=== PATIENT | male | born 1950 | race Caucasian/White ===

== ENCOUNTER → 2023-06-07 10:49 | Outpatient (REF) | payer MEDICARE, SELFPAY | LOC: HWRAD 10:49 | PROVIDERS: ATTENDING PHYSICIAN Family Medicine | DX: R10.32 Left lower quadrant pain (principal) | CPT/HCPCS: 74177; Q9967 ==

== ENCOUNTER → 2023-08-07 06:32 | Day surgery (SDC) | payer MEDICARE, SELFPAY ==
[2023-08-07 07:31] LABS: Glucose - Point of Care 121 mg/dl (70-99)
== END ==
LOC: GI 06:32
PROVIDERS: ATTENDING PHYSICIAN Internal Medicine; FAMILY PHYSICIAN Family Medicine
DX: D12.3 Benign neoplasm of transverse colon (principal); K63.5 Polyp of colon; K57.30 Diverticulosis of large intestine without perforation or abscess without bleeding; K64.8 Other hemorrhoids; K31.89 Other diseases of stomach and duodenum; R93.3 Abnormal findings on diagnostic imaging of other parts of digestive tract; D64.9 Anemia, unspecified; R10.32 Left lower quadrant pain; R10.84 Generalized abdominal pain
CPT/HCPCS: 45385; 45380; 43239; 88305; 82962; 88342

== ENCOUNTER → 2023-10-05 06:57 | Outpatient (REF) | payer MEDICARE, SELFPAY | LOC: PAVMRI 06:57 | PROVIDERS: ATTENDING PHYSICIAN Orthopaedic Surgery; FAMILY PHYSICIAN Family Medicine | DX: M25.512 Pain in left shoulder (principal) | CPT/HCPCS: 73221 ==

== ENCOUNTER → 2023-10-18 07:46 | Outpatient (REF) | payer MEDICARE, SELFPAY | LOC: MRI 3T 07:46 | PROVIDERS: ATTENDING PHYSICIAN Nurse Practitioner; FAMILY PHYSICIAN Family Medicine; REFERRING PHYSICIAN Internal Medicine Hematology & Oncology | DX: R93.89 Abnormal findings on diagnostic imaging of other specified body structures (principal); R10.32 Left lower quadrant pain | CPT/HCPCS: 72197; 74183; A9575 ==

== ENCOUNTER → 2023-10-31 06:45 | Outpatient (REF) | payer MEDICARE, SELFPAY | LOC: RCS 06:45 | PROVIDERS: ATTENDING PHYSICIAN Specialist; FAMILY PHYSICIAN Family Medicine | DX: Z01.818 Encounter for other preprocedural examination (principal) | CPT/HCPCS: 93005 ==

== ENCOUNTER 2023-12-27 06:33 | Outpatient (RCR) | payer MEDICARE, SELFPAY | END 2023-12-27 23:59 | disposition home or self-care (01) | LOC: RPT 06:33 | PROVIDERS: ATTENDING PHYSICIAN Physician Assistant Surgical; FAMILY PHYSICIAN Family Medicine | DX: M62.81 Muscle weakness (generalized) (principal); M25.512 Pain in left shoulder; Z98.890 Other specified postprocedural states; Z73.6 Limitation of activities due to disability | CPT/HCPCS: 97010; 97110; 97162 ==

== ENCOUNTER 2024-01-26 08:53 | Outpatient (RCR) | payer MEDICARE, SELFPAY | END 2024-01-26 23:59 | disposition home or self-care (01) | LOC: RPT 08:53 | PROVIDERS: ATTENDING PHYSICIAN Physician Assistant Surgical; FAMILY PHYSICIAN Family Medicine | DX: M25.512 Pain in left shoulder (principal); M62.81 Muscle weakness (generalized); Z98.890 Other specified postprocedural states; Z73.6 Limitation of activities due to disability | CPT/HCPCS: 97010; 97110 ==

== ENCOUNTER 2024-02-09 07:24 | Outpatient (RCR) | payer MEDICARE, SELFPAY | END 2024-02-09 23:59 | disposition home or self-care (01) | LOC: RPT 07:24 | PROVIDERS: ATTENDING PHYSICIAN Physician Assistant Surgical; FAMILY PHYSICIAN Family Medicine | DX: M25.512 Pain in left shoulder (principal); M62.81 Muscle weakness (generalized); Z98.890 Other specified postprocedural states; Z73.6 Limitation of activities due to disability | CPT/HCPCS: 97010; 97110 ==

== ENCOUNTER 2024-03-01 06:54 | Outpatient (RCR) | payer MEDICARE, SELFPAY | END 2024-03-01 23:59 | disposition home or self-care (01) | LOC: RPT 06:54 | PROVIDERS: ATTENDING PHYSICIAN Physician Assistant Surgical; FAMILY PHYSICIAN Family Medicine | DX: M25.512 Pain in left shoulder (principal); M62.81 Muscle weakness (generalized); Z98.890 Other specified postprocedural states; Z73.6 Limitation of activities due to disability | CPT/HCPCS: 97010; 97110 ==

== ENCOUNTER → 2024-12-16 07:35 | Outpatient (REF) | payer MEDICARE, SELFPAY ==
[2024-12-16 08:38] LABS: Hematocrit 31.5 % (39.0-52.0); Hemoglobin 9.7 g/dL (13.0-18.0); Mean Corp Hgb Conc. 30.8 g/dL (33.0-37.0); Mean Corpuscular Volume 118.4 fL (80.0-94.0); Nucleated Red Blood Cells % 0 % (-); Platelet Count 452 10^3/uL (130-400); Red Cell Dist. Width 13.7 % (11.5-14.5)
[2024-12-16 09:10] LABS: Blood Urea Nitrogen 19 mg/dl (9-20); Iron 136 ug/dl (49-181)
[2024-12-16 09:18] LABS: Total Iron Binding Capacity 444 ug/dl (261-462)
[2024-12-16 09:37] LABS: Ferritin 89.1 ng/ml (17.9-464.0)
== END ==
LOC: REG 07:35
PROVIDERS: ATTENDING PHYSICIAN Internal Medicine Hematology & Oncology
DX: D64.9 Anemia, unspecified (principal); D75.89 Other specified diseases of blood and blood-forming organs; D47.2 Monoclonal gammopathy; D46.9 Myelodysplastic syndrome, unspecified; C88.00 Waldenstrom macroglobulinemia not having achieved remission
CPT/HCPCS: 36415; 82565; 82668; 82728; 83540; 83550; 84520; 85025

== ENCOUNTER 2024-12-19 06:19 | Day surgery (SDC) | payer MEDICARE, SELFPAY ==
[2024-12-19] VITALS (11 sets, daily range): BP systolic 16–148; BP diastolic 68–79; BMI 35.5
[2024-12-19] MEDS: PERIDEX 0.12% ORAL RINSE 15 ML PO (06:49)
[2024-12-19] MEDS: BACTROBAN NASAL 1 GRAM NASAL (06:49)
[2024-12-19 06:59] LABS: Glucose - Point of Care 97 mg/dl (70-99)
[2024-12-19 07:10] LABS: INR 1.09; PT 14.4 Sec (11.4-14.6)
[2024-12-19 07:11] LABS: APTT 24.8 Sec (23.4-35.0); Blood Urea Nitrogen 26 mg/dl (9-20); Calcium 9.4 mg/dl (8.4-10.2); Carbon Dioxide 29 mmol/L (22-30); Chloride 105 mmol/L (98-107); Estimated Creatinine Clearance 76 ml/min; Glucose 126 mg/dl (70-99); Potassium 4.2 mmol/L (3.5-5.1); Sodium 138 mmol/L (135-145); eGFR > 60.00
--- NOTE | 2024-12-19 07:16 | W.SUR.PREOP ---
Pre-Operative Surgical Note
-
I have examined this patient prior to the performance of the scheduled procedure.
The patient's condition is unchanged from the time of the current History and
Physical and the patient is able to undergo the scheduled procedure.
Discussed with patient symptomatology and indications for temporal artery biopsy. Discussed with him that I defer to the referring primary care/consumer education specialist for the suspicion/differential or indication for performing temporal artery biopsy. I
discussed my role in technically performing the biopsy. Discussed procedure at length. Discussed risks including but not limited to bleeding, infection, nerve injury. Discussed potential negative yield. Discussed his symptoms of essentially
bilateral jaw pain/fatigue tiredness. Therefore discussed while the most recent recommendations are for unilateral biopsies in the setting of one-sided symptoms, given that he has bilateral symptoms, likely would proceed with bilateral temporal
artery biopsy. He understands all wishes to proceed.
[2024-12-19 07:19] LABS: Hematocrit 29.9 % (39.0-52.0); Hemoglobin 9.9 g/dL (13.0-18.0); Mean Corp Hgb Conc. 33.1 g/dL (33.0-37.0); Mean Corpuscular Volume 113.7 fL (80.0-94.0); Platelet Count 470 10^3/uL (130-400); Red Cell Dist. Width 13.3 % (11.5-14.5)
--- NOTE | 2024-12-19 08:12 | OR.RPT ---
Operative Report
Operative Report
PROCEDURE DATE: 12/19/2024
Preoperative diagnosis: Temporal arteritis
Postoperative diagnosis: Same
Procedure: Bilateral superficial temporal artery biopsies
Surgeon: Kiko
Health Care Consultant: Delano, required for all aspects of procedure including assistance with traction/countertraction and assistance with closure.
Complications: None
Anesthesia: Local, sedation
Indications for procedure:
Symptoms of bilateral jaw pain and elevated sed rate. Fatigue/tiredness. Referred for temporal artery biopsy. Risk/benefits/alternatives fully discussed. Patient understood all wish to proceed.
Description of procedure:
Patient was identified brought to the operating room placed on the table in supine position. After the adequate administration of anesthesia and perioperative antibiotics he was prepped and draped in the standard surgical fashion. A standard
preoperative timeout was undertaken and everybody was in agreement the plan. A longitudinal incision was made in the scalp just anterior and superior to the superiormost aspect of the pinna of the right ear (overlying the palpable pulsation of the
artery) after infiltration of the skin and subcutaneous tissue with 1% lidocaine. This was carried down through the subcutaneous layer and the fascia layer with electrocautery. The superficial temporal artery was identified. It was mobilized
using sharp dissection. It was then ligated proximally and distally with silk ties and a clip. I then transected the artery. This was then sent for specimen.
A similar incision was made in the left scalp just anterior and superior to the superiormost aspect of the pinna of the left ear (overlying the palpable pulsation of the artery) after infiltration of the skin and subcutaneous tissue with 1%
lidocaine. Similarly this was carried down through the subcutaneous tissue and fascial layer with the electrocautery. The superficial temporal artery was identified and was mobilized using sharp dissection. It was then ligated proximally and
distally with silk ties and a clip. I then transected the artery. This was then sent for specimen.
Both incision sites were then irrigated. Hemostasis was achieved and confirmed. We then closed in layers using 3-0 Vicryl deep dermal layer followed by 4-0 Monocryl subcuticular running layer (this was completed bilaterally). Dermabond was then
applied bilaterally. Patient tolerated procedure well.
[2024-12-19 08:33] LABS: Glucose - Point of Care 110 mg/dl (70-99)
[2024-12-19] MEDS: TYLENOL 650 MG PO (09:03)
== END 2024-12-19 10:00 | disposition home or self-care (01) ==
LOC: CATH 06:19
PROVIDERS: ATTENDING PHYSICIAN Surgery Vascular Surgery; PRIMARYCARE PHYSICIAN Family Medicine
DX: M31.6 Other giant cell arteritis (principal); R70.0 Elevated erythrocyte sedimentation rate; R68.84 Jaw pain; I44.0 Atrioventricular block, first degree; Z88.1 Allergy status to other antibiotic agents
CPT/HCPCS: 37609; 80048; 82962; 85027; 85610; 85730; 86850; 86900; 86901; 88305; 88313; 93005